=== PATIENT | female | born 1955 | race Caucasian/White ===

== ENCOUNTER 2020-05-31 23:19 | Emergency (ER) | payer OTHER ==
[~2020-05-31] VITALS: Ht 160 cm; Wt 73.9 kg
[2020-05-31] MEDS ORDERED: TOPROL XL25 M1 (23:33)
[2020-05-31] MEDS ORDERED: ATORVASTATIN CA10 MG (23:34)
[2020-05-31] MEDS ORDERED: ZESTRIL5 MG (23:34)
[2020-05-31] MEDS ORDERED: METFORMIN HCL1000 M2 (23:34)
[2020-06-01] MEDS ORDERED: AMLODIPINE BESY10 MG PO (02:43)
== END 2020-06-01 03:18 | disposition home or self-care (01) ==
LOC: ER 23:19
DX: I16.0 Hypertensive urgency (principal); I10 Essential (primary) hypertension; R51.9 Headache, unspecified; Z03.818 Encounter for observation for suspected exposure to other biological agents ruled out

== ENCOUNTER 2021-05-08 11:08 | Outpatient (CLI) | payer OTHER ==
[~2021-05-08 11:08] MED LIST: AMLODIPINE BESY10 MG PO; ATORVASTATIN CA10 MG; METFORMIN HCL1000 M2; TOPROL XL25 M1; ZESTRIL5 MG
== END 2021-05-08 11:19 | disposition home or self-care (01) ==
LOC: MAMO-SONO 11:08
PROVIDERS: ATTEND General Practice
DX: Z12.31 Encounter for screening mammogram for malignant neoplasm of breast (principal)

== ENCOUNTER 2021-08-19 16:25 | Emergency (ER) | payer OTHER ==
[~2021-08-19] VITALS: Ht 157.5 cm; Wt 76.7 kg
[2021-08-19] MEDS ORDERED: IRON236 MG (16:49)
[2021-08-19] MEDS ORDERED: MEDROLPACK PO (20:53)
== END 2021-08-19 21:44 | disposition home or self-care (01) ==
LOC: ER 16:25
DX: R21 Rash and other nonspecific skin eruption (principal); Z20.822 Contact with and (suspected) exposure to COVID-19

== ENCOUNTER 2023-11-23 15:03 | Emergency (ER) | payer OTHER ==
[~2023-11-23] VITALS: Ht 157.5 cm; Wt 84.4 kg
[~2023-11-23 15:03] MED LIST changes: +IRON236 MG; +MEDROLPACK PO
[2023-11-23] MEDS ORDERED: TRAMADOL HCL 50 MG TABLET PO ONE (17:45)
[2023-11-23] MEDS ORDERED: CEFTRIAXONE SODIUM 2,000 MG VIAL IV ONE (17:45)
[2023-11-23] MEDS ORDERED: CEFTRIAXONE SODIUM 2,000 MG VIAL ONE (18:03)
== END 2023-11-23 18:32 | disposition home or self-care (01) ==
LOC: ER 15:05
DX: L02.91 Cutaneous abscess, unspecified (principal); W54.0XXA Bitten by dog, initial encounter; I10 Essential (primary) hypertension; E11.9 Type 2 diabetes mellitus without complications; Z79.84 Long term (current) use of oral hypoglycemic drugs; Z88.6 Allergy status to analgesic agent
CPT/HCPCS: 29105; 96365; 99282; J0696

== ENCOUNTER 2023-12-24 09:05 | Inpatient (IN) | payer OTHER ==
[~2023-12-24] VITALS: Ht 157.5 cm; Wt 75.3 kg
[2023-12-24] MEDS ORDERED: ECOTRIN81 MG (10:03)
[2023-12-24] MEDS ORDERED: GLIMEPIRIDE2 M1 PO (10:04)
[2023-12-24] MEDS ORDERED: LIPOFEN150 MG (10:05)
[2023-12-24] MEDS ORDERED: LOSARTAN POTAS100 MG PO (10:05)
[2023-12-24] MEDS ORDERED: AMOX1TAB5 (10:06)
[2023-12-24] MEDS ORDERED: JANUMET 50-5001 EACH PO (10:06)
[2023-12-24] MEDS ORDERED: MEPERIDINE HCL/PF 25 MG/ML VIAL IM ONE (11:15)
[2023-12-24 11:39] LABS: HEMOGLOBIN 9.8 g/dL (12.0-15.00); MEAN CELL VOLUME 65.6 fL (80.00-100.00); MEAN CORPUSCULAR HEMOGLOBIN 20.7 pg (27.00-32.0); MEAN CORPUSCULAR HGB CONC 31.6 g/dl (32.0-36.0); PLATELET COUNT 420 K/uL (150-450); RED BLOOD COUNT 4.73 M/uL (4.00-6.00); RED CELL DISTRIBUTION WIDTH 20.7 % (11.5-14.5)
[2023-12-24 11:44] LABS: ERYTHROCYTE SEDIMENTATION RATE 76 mm/hr
[2023-12-24 12:21] LABS: BILIRUBIN TOTAL 0.22 mg/dL (0.3-1.2); CALCIUM 9.8 mg/dL (8.5-10.1); CREATININE SERUM 0.69 mg/dL (0.55-1.02); GFR 84.86; GLOBULINA 4.2 G/DL (2.4-3.5); POTASSIUM 4.68 mEq/L (3.5-5.1); TOTAL PROTEIN 8.2 gm/dL (6.4-8.2)
[2023-12-24 12:22] LABS: C-REACTIVE PROTEIN 1.33 MG/DL (0.00-0.29)
[2023-12-24] MEDS ORDERED: LACTOBACILLUS ACIDOPHILUS 1 CAP CAP PO SCH (17:00)
[2023-12-24] MEDS ORDERED: VANCOMYCIN HCL 1,000 MG in 0.9 % SODIUM CHLORIDE 250 ML IV SCH (17:00)
[2023-12-24] MEDS ORDERED: 0.9 % SODIUM CHLORIDE 1,000 ML IV SCH (17:00)
[2023-12-24] MEDS ORDERED: MEPERIDINE HCL/PF 25 MG/ML VIAL IV PRN (17:00)
[2023-12-24] MEDS ORDERED: CEFEPIME HCL 1,000 MG VIAL IV SCH (17:00)
[2023-12-24] MEDS ORDERED: DEXTROSE 50 % IN WATER 0.5 G/ML DISP.SYRIN IV PRN (17:00)
[2023-12-24] MEDS ORDERED: INSULIN LISPRO 1,000 UNIT/10 ML UNITS SUBCUTANEO PRN (17:00)
[2023-12-24] MEDS ORDERED: LACTOBACILLUS ACIDOPHILUS 1 CAP CAP PO ONE (18:06)
[2023-12-24] MEDS ORDERED: VANCOMYCIN HCL 1,000 MG VIAL ONE (18:11)
[2023-12-24 18:55] LABS: URINE APPEARANCE Clear; URINE BILIRRUBIN Negative (NEGATIVE); URINE BLOOD Negative; URINE COLOR Yellow; URINE GLUCOSE Negative (NEGATIVE); URINE KETONE Trace (NEGATIVE); URINE LEUKOCYTE Negative; URINE NITRATE Negative; URINE PROTEIN Trace (NEGATIVE); URINE UROBILINOGEN 0.2 E.U./dl
[2023-12-24 18:56] LABS: URINE BACTERIA 46.6 uL (0.0-1933); URINE EPITHELIAL CELLS 23.4 uL (0.0-38.8); URINE WBC 6.1 uL (0.0-23.2)
[2023-12-24 18:58] LABS: INR 1.02; PARTIAL THROMBOPLASTIN TIME 28.5 SECONDS (22.0-34.0); PROTHROMBIN TIME 11.1 SECONDS (9.0-11.5)
[2023-12-24 19:11] LABS: URINE CAST 0.15 uL (0.0-1.40); URINE CRYSTALS FEW /HPF
[2023-12-24] MEDS ORDERED: FAMOtidine 20 MG TABLET PO SCH (21:00)
[2023-12-24 21:19] VITALS: BP 190/81
[2023-12-25 01:52] VITALS: BP 160/88
[2023-12-25 08:12] LABS: HEMATOCRIT 26.7 % (36.0-45.00); MEAN CORPUSCULAR HGB CONC 32.2 g/dl (32.0-36.0); PLATELET COUNT 356 K/uL (150-450); RED BLOOD COUNT 4.11 M/uL (4.00-6.00); RED CELL DISTRIBUTION WIDTH 20.9 % (11.5-14.5)
[2023-12-25 08:15] VITALS: BP 162/91
[2023-12-25 08:29] LABS: ERYTHROCYTE SEDIMENTATION RATE 46 mm/hr
[2023-12-25 08:41] LABS: MEAN CELL VOLUME 64.9 fL (80.00-100.00); MEAN CORPUSCULAR HEMOGLOBIN 20.9 pg (27.00-32.0)
[2023-12-25 08:42] LABS: HEMOGLOBIN 8.6 g/dL (12.0-15.00)
[2023-12-25] MEDS ORDERED: ATORVASTATIN CALCIUM 10 MG TABLET PO SCH (09:00)
[2023-12-25] MEDS ORDERED: AMLODIPINE BESYLATE 10 MG TABLET PO SCH (09:00)
[2023-12-25] MEDS ORDERED: LOSARTAN POTASSIUM 100 MG TABLET PO SCH (09:00)
[2023-12-25] MEDS ORDERED: ENOXAPARIN SODIUM 40 MG/0.4 ML SYRINGE SUBCUTANEO SCH (09:00)
[2023-12-25 09:12] LABS: ALBUMIN 3.2 gm/dL (3.4-5.0); BILIRUBIN TOTAL 0.3 mg/dL (0.3-1.2); CALCIUM 8.7 mg/dL (8.5-10.1); CREATININE SERUM 0.75 mg/dL (0.55-1.02); GFR 77.08; POTASSIUM 4.26 mEq/L (3.5-5.1); TOTAL PROTEIN 6.2 gm/dL (6.4-8.2)
[2023-12-25 09:23] LABS: C-REACTIVE PROTEIN 1.7 MG/DL (0.00-0.29)
[2023-12-25 16:00] VITALS: BP 157/81; O2SAT 99
[2023-12-25] MEDS ORDERED: SOD FERRIC GLUC COMPLX/SUCROSE 62.5 MG in 0.9 % SODIUM CHLORIDE 50 ML IV SCH (18:33)
[2023-12-26] MEDS ORDERED: PIPERACILLIN/TAZOBACTAM SODIUM 3.375 GM in 0.9 % SODIUM CHLORIDE 100 ML IV SCH
[2023-12-26 01:28] VITALS: BP 134/76
[2023-12-26] MEDS ORDERED: IRON FUM,PS/FOLIC ACID/VITC/B3 1 CAP CAPSULE PO SCH (09:00)
[2023-12-26] MEDS ORDERED: Cyanocobalamin/Mecobalamin 1 TAB.SL SL SCH (09:00)
[2023-12-26] MEDS ORDERED: FOLIC ACID 1 MG TABLET PO SCH (09:00)
[2023-12-26 09:17] VITALS: BP 160/90
[2023-12-26 16:00] VITALS: BP 147/80; O2SAT 100
[2023-12-26] MEDS ORDERED: MEPERIDINE HCL/PF 25 MG/ML VIAL IV SCH (17:00)
[2023-12-27 02:08] VITALS: BP 135/90; O2SAT 100
[2023-12-27 08:19] VITALS: BP 145/83
[2023-12-27] MEDS ORDERED: METHYLPREDNISOLONE SOD SUCC 40 MG VIAL IV NR (10:30)
[2023-12-27] MEDS ORDERED: INSULIN NPH HUM/REG INSULIN HM 1,000 UNIT/10 ML UNITS SUBCUTANEO STA (10:41)
[2023-12-27 10:57] LABS: FOLIC ACID 18.52 ng/ml (4.78-20)
[2023-12-27] MEDS ORDERED: TRAMADOL HCL 50 MG TABLET PO SCH (17:00)
[2023-12-27 17:08] VITALS: BP 137/77; O2SAT 98
[2023-12-27] MEDS ORDERED: TETANUS & DIPHTHERIA TOX,ADULT 0.5 ML VIAL IM ONE (19:00)
[2023-12-27] MEDS ORDERED: CYCLOBENZAPRINE HCL 5 MG TABLET PO SCH (21:00)
[2023-12-28 02:48] VITALS: BP 130/78; O2SAT 97
[2023-12-28] MEDS ORDERED: INSULIN NPH HUM/REG INSULIN HM 1,000 UNIT/10 ML UNITS SUBCUTANEO SCH (08:00)
[2023-12-28 08:49] LABS: HEMATOCRIT 28.4 % (36.0-45.00); HEMOGLOBIN 9.1 g/dL (12.0-15.00); MEAN CELL VOLUME 64.2 fL (80.00-100.00); MEAN CORPUSCULAR HEMOGLOBIN 20.5 pg (27.00-32.0); MEAN CORPUSCULAR HGB CONC 32.2 g/dl (32.0-36.0); PLATELET COUNT 350 K/uL (150-450); RED BLOOD COUNT 4.42 M/uL (4.00-6.00); RED CELL DISTRIBUTION WIDTH 20.9 % (11.5-14.5)
[2023-12-28 09:31] VITALS: BP 130/72; O2SAT 98
[2023-12-28 10:01] LABS: ALBUMIN 3.4 gm/dL (3.4-5.0); BILIRUBIN TOTAL 0.39 mg/dL (0.3-1.2); CALCIUM 9.3 mg/dL (8.5-10.1); CREATININE SERUM 0.67 mg/dL (0.55-1.02); GFR 87.79; GLOBULINA 3.4 G/DL (2.4-3.5); POTASSIUM 4.37 mEq/L (3.5-5.1); TOTAL PROTEIN 6.8 gm/dL (6.4-8.2)
[2023-12-28 19:05] VITALS: BP 147/78; O2SAT 98
[2023-12-28] MEDS ORDERED: MEPERIDINE HCL/PF 25 MG/ML VIAL IV SCH (20:21)
[2023-12-29 02:02] VITALS: BP 121/70
[2023-12-29 08:54] VITALS: BP 117/67
[2023-12-29 18:28] VITALS: BP 131/76; O2SAT 97
[2023-12-30 02:35] VITALS: BP 119/67; O2SAT 98
[2023-12-30 09:43] VITALS: BP 127/70
[2023-12-30 16:31] VITALS: BP 115/69
[2023-12-31 00:49] VITALS: BP 120/69; O2SAT 97
[2023-12-31 05:46] LABS: CALCIUM 8.7 mg/dL (8.5-10.1); CREATININE SERUM 0.67 mg/dL (0.55-1.02); GFR 87.79; PHOSPHOROUS 2.9 mg/dL (2.5-4.9); POTASSIUM 4.02 mEq/L (3.5-5.1)
[2023-12-31 06:53] LABS: HEMATOCRIT 26.2 % (36.0-45.00); PLATELET COUNT 297 K/uL (150-450); RED BLOOD COUNT 4.04 M/uL (4.00-6.00); RED CELL DISTRIBUTION WIDTH 21.7 % (11.5-14.5)
[2023-12-31 06:56] LABS: HEMOGLOBIN 8.4 g/dL (12.0-15.00); MEAN CELL VOLUME 64.7 fL (80.00-100.00); MEAN CORPUSCULAR HEMOGLOBIN 20.7 pg (27.00-32.0)
[2023-12-31 09:29] VITALS: BP 130/76; O2SAT 98
[2023-12-31 16:27] VITALS: BP 143/84
[2023-12-31] MEDS ORDERED: SOD FERRIC GLUC COMPLX/SUCROSE 62.5 MG in 0.9 % SODIUM CHLORIDE 50 ML IV SCH (19:11)
[2024-01-01 00:19] VITALS: BP 131/71; O2SAT 96
[2024-01-01 07:38] LABS: HEMATOCRIT 26.3 % (36.0-45.00); MEAN CORPUSCULAR HGB CONC 32.5 g/dl (32.0-36.0); PLATELET COUNT 318 K/uL (150-450); RED CELL DISTRIBUTION WIDTH 22.3 % (11.5-14.5)
[2024-01-01 07:44] LABS: HEMOGLOBIN 8.5 g/dL (12.0-15.00); MEAN CELL VOLUME 64.1 fL (80.00-100.00); MEAN CORPUSCULAR HEMOGLOBIN 20.7 pg (27.00-32.0)
[2024-01-01 07:55] LABS: CREATININE SERUM 0.66 mg/dL (0.55-1.02); GFR 89.33; POTASSIUM 4.11 mEq/L (3.5-5.1)
[2024-01-01 08:34] VITALS: BP 130/77; O2SAT 98
[2024-01-01 15:30] VITALS: BP 138/75
[2024-01-02 01:08] VITALS: BP 160/76; O2SAT 97
[2024-01-02 08:57] VITALS: BP 128/74; O2SAT 98
[2024-01-02] MEDS ORDERED: PIPERACILLIN/TAZOBACTAM SODIUM 3.375 GM in 0.9 % SODIUM CHLORIDE 100 ML IV SCH (13:40)
[2024-01-02 16:47] VITALS: BP 137/81; O2SAT 98
[2024-01-03 00:54] VITALS: BP 156/80; O2SAT 98
[2024-01-03] MEDS ORDERED: INSULIN NPH HUM/REG INSULIN HM 1,000 UNIT/10 ML UNITS SUBCUTANEO SCH (08:00)
[2024-01-03 16:52] VITALS: BP 149/91; O2SAT 98
[2024-01-04 00:38] VITALS: BP 147/80
[2024-01-04] MEDS ORDERED: MEPERIDINE HCL/PF 25 MG/ML VIAL IV SCH ×2 (06:00→09:30)
[2024-01-04] MEDS ORDERED: INSULIN LISPRO 1,000 UNIT/10 ML UNITS SUBCUTANEO SCH ×2 (08:00→12:00)
[2024-01-04 08:48] VITALS: BP 172/80; O2SAT 97
[2024-01-04] MEDS ORDERED: INSULIN GLARGINE,HUM.REC.ANLOG 1,000 UNITS/10 ML UNITS SUBCUTANEO SCH (09:00)
[2024-01-04 17:10] VITALS: BP 156/80; O2SAT 97
[2024-01-05 01:04] VITALS: BP 148/75
[2024-01-05 07:24] LABS: HEMATOCRIT 28.1 % (36.0-45.00); HEMOGLOBIN 9.1 g/dL (12.0-15.00); MEAN CORPUSCULAR HEMOGLOBIN 21.1 pg (27.00-32.0); MEAN CORPUSCULAR HGB CONC 32.3 g/dl (32.0-36.0); PLATELET COUNT 245 K/uL (150-450); RED BLOOD COUNT 4.29 M/uL (4.00-6.00); RED CELL DISTRIBUTION WIDTH 23.5 % (11.5-14.5)
[2024-01-05 07:35] LABS: MEAN CELL VOLUME 65.4 fL (80.00-100.00)
[2024-01-05 07:40] VITALS: BP 137/78; O2SAT 97
[2024-01-05 07:49] LABS: CREATININE SERUM 0.63 mg/dL (0.55-1.02); GFR 94.25; PHOSPHOROUS 3.5 mg/dL (2.5-4.9); POTASSIUM 3.67 mEq/L (3.5-5.1)
[2024-01-05 07:52] LABS: ERYTHROCYTE SEDIMENTATION RATE > 130 mm/hr
[2024-01-05 07:59] LABS: C-REACTIVE PROTEIN 2.96 MG/DL (0.00-0.29)
[2024-01-05 17:54] VITALS: BP 146/84; O2SAT 97
[2024-01-06 01:56] VITALS: BP 131/76; O2SAT 98
[2024-01-06 08:20] VITALS: BP 146/82
[2024-01-06] MEDS ORDERED: MEPERIDINE HCL/PF 25 MG/ML VIAL IV SCH (14:00)
[2024-01-06] MEDS ORDERED: LOSARTAN POTAS100 MG PO (15:12)
[2024-01-06] MEDS ORDERED: JANUMET 50-1,01 EACH PO (15:12)
[2024-01-06] MEDS ORDERED: METRONIDAZOLE500 MG PO (15:12)
[2024-01-06] MEDS ORDERED: ECOTRIN81 MG PO (15:12)
[2024-01-06] MEDS ORDERED: GLIMEPIRIDE2 M1 PO (15:12)
[2024-01-06] MEDS ORDERED: FUSION PLUS CA1 EACH PO (15:12)
[2024-01-06] MEDS ORDERED: FOLIC ACID1 MG PO (15:12)
[2024-01-06] MEDS ORDERED: LIPOFEN150 MG PO (15:12)
[2024-01-06] MEDS ORDERED: ATORVASTATIN CA10 MG PO (15:12)
[2024-01-06] MEDS ORDERED: AMLODIPINE BESY10 MG PO (15:12)
[2024-01-06] MEDS ORDERED: ABANEU-SL TABL1 EACH SL (15:12)
[2024-01-06] MEDS ORDERED: INSULIN LISPRO 1,000 UNIT/10 ML UNITS SUBCUTANEO SCH (17:00)
== END 2024-01-06 17:23 | disposition home or self-care (01) | DRG 983 ==
LOC: ER 09:06 → SEC-K 17:34 → MEDJ 18:18
PROVIDERS: General Practice; Internal Medicine Geriatric Medicine; ADMIT Internal Medicine; ATTEND Internal Medicine
PROC: BP2 Imaging, Non-Axial Upper Bones, Computerized Tomography (CT Scan) (ICD-10-PCS; 2023-12-24)
PROC: BP3MYZZ Magnetic Resonance Imaging (MRI) of Left Wrist using Other Contrast (ICD-10-PCS; 2023-12-26)
PROC: 02HV33Z Insertion of Infusion Device into Superior Vena Cava, Percutaneous Approach (ICD-10-PCS; 2023-12-26)
PROC: 0JDK0ZZ Extraction of Left Hand Subcutaneous Tissue and Fascia, Open Approach (ICD-10-PCS; principal; 2023-12-29)
PROC: 0JDK0ZZ Extraction of Left Hand Subcutaneous Tissue and Fascia, Open Approach (ICD-10-PCS; 2024-01-04)
DX: L03.114 Cellulitis of left upper limb (principal); B96.89 Other specified bacterial agents as the cause of diseases classified elsewhere; D64.9 Anemia, unspecified; W54.0XXA Bitten by dog, initial encounter; Y93.9 Activity, unspecified; Y92.9 Unspecified place or not applicable; E11.65 Type 2 diabetes mellitus with hyperglycemia; Z79.4 Long term (current) use of insulin; I25.10 Atherosclerotic heart disease of native coronary artery without angina pectoris; I11.9 Hypertensive heart disease without heart failure; E78.5 Hyperlipidemia, unspecified; I80.8 Phlebitis and thrombophlebitis of other sites
CPT/HCPCS: 73225